=== PATIENT | female | born 1960 | race Caucasian/White ===

== ENCOUNTER 2018-10-25 06:33 | Inpatient (IN) | payer OTHER, SELFPAY ==
--- NOTE | 2018-10-25 12:22 | PM.HP.1 ---
History of Present Illness Date Patient Seen: 10/25/18 Time Patient Seen: 17:40 Chief complaint: R ANKLE FX Narrative: Tatum Atkins is a 58 yo F that is visiting from [place]. She had a fall while in Monday after getting up to the bathroom around 2:00 a.m. and sustained a right trimal ankle fx/dx. She denies loss of consciousness to assess she was half awake and lost her balance and fell in the bathroom in a hotel. Per report the skin was tented and threatened but not open. This was promptly reduced in the Monday ED. The patient has been indicated for surgery due to the severe, unstable and displaced fracture. Unfortunately they are from out of state and have very limited local resources so they have been indicated for inpatient admission for pain management and surgery. Their transported by ground across the [facility] and admitted to the orthopedic service. Patient denies any other major medical problems, denies a history of diabetes denies smoking. No prior ankle surgery. Pain is controlled. Denies numbness tingling nausea or vomiting. Is using rest and elevation and ice and pain medications. She has no known allergies to medications. Patient History Medical History Chicken pox (Acute) H/O: hysterectomy (Acute) [place] teeth extracted (Acute) Surgical History H/O arthroscopy of right knee (Acute) History of hysterectomy for benign disease (Acute) Hx of tonsillectomy (Acute) Social History household members: spouse Smoking Status: Never smoker Family & Social History Family history unavailable: Yes Social History: Lives in [place], [place], employed. Safety & Behavioral: No smoking Tobacco & Substance use: No smoking Meds Home Medications Medication Instructions Recorded Confirmed Type Ocuvite Eye Plus Multi 1 tab 10/25/18 History Allergies Allergy/AdvReac Type Severity Reaction Status Date / Time No Known Drug Allergies Allergy Verified 10/25/18 13:30 Review of Systems Review of Systems Denies fevers chills nausea or vomiting. Denies any history of heart arrhythmias. Denies shortness of breath denies abdominal pain denies numbness or tingling. Denies any urinary incontinence or retention. No history of bleeding problems. No history of blood clots or hypercoagulability Exam Narrative Exam Narrative: General: Alert oriented female in no acute distress resting in bed. HEENT: Normocephalic atraumatic Respiratory exam: Lungs clear to auscultation bilaterally Cardiac exam: Regular rate and rhythm Abdominal exam: Soft nontender Musculoskeletal exam: Moving bilateral upper extremities no known numbness tingling no tenderness to palpation. Sensation intact to light touch Left lower extremity: Full range of motion no tenderness to palpation no bruising no swelling. SCD in place Right lower extremity: In a splint. Wiggles toes. Palpable dorsalis pedis pulse. Brisk capillary refill. Full range of motion of the knee. Grossly normal alignment. Calf is soft. Thigh compartments soft. Negative logroll. Sensation grossly intact to light touch superficial deep peroneal sural and saphenous nerves. Remainder of motor exam deferred due to known acute trauma. Objective ECG Impression: Normal sinus rhythm Imaging CT scan lower extremity: My impression: Comminuted trimalleolar right ankle fracture without posterior lateral fragment. Oblique fragment distal fibula and a small medial malleolus fragment. There is intra-articular comminution at the posterior malleolar fragment site and widening of the mortise. Radiologist's impression: IMPRESSION: Trimalleolar right ankle fracture. Dictated by: Chester Chao M.D. on 10/25/2018 at 13:01 Approved by: Chester Chao M.D. on 10/25/2018 at 13:04 Right ankle x-ray: My impression: Post reduction three views of the right ankle in the splint AP mortise and lateral demonstrate trimalleolar ankle fracture with a scheduled lateral talar shift and joint space widening. Plantar calcaneal spur, talonavicular degenerative changes dorsally Separate pre reduction out side hospital images from [facility] on 10/25/2018 at 3:15 a.m. show a displaced trimalleolar ankle fracture dislocation with a lateral displacement of the talus on the tibia. And postreduction images at 11:48 p.m. show a improved alignment of the tibial talar joint status post reduction and splint placement Two view knee x-ray AP and lateral also from outside hospital demonstrate no evidence of proximal fibular fracture Radiologist's impression: IMPRESSION: Trimalleolar fractures with widening of medial joint space and uneven ankle mortise. Dictated by: Salomon Mckinley M.D. on 10/25/2018 at 16:09 Approved by: Salomon Mckinley M.D. on 10/25/2018 at 16:14 Labs Result Diagrams: 10/25/18 13:01 10/25/18 13:01 Assessment & Plan (1) Fracture dislocation of right ankle: Current visit: Yes Status: Acute Assessment & Plan narrative: 1. R ankle fracture dislocation. closed. The dislocation was well reduced at the outside ER and the patient was transported for continuing care and surgical management. she has a unstable ankle fx/dx and has been indicated for operative stabilization to reduced the risk of malunion, and post-traumatic arthritis. A CT scan has been orderd to eval the post mal fragment and plan the operative approach. The patient can anticipate 6 weeks nwb postop then progressive WB. 2. SCDs for DVT prophy. will start chem prophylaxis postop 3. pain control. PO and IV ordered 4. preop labs and EKG 5. Plan ORIF R ankle 10/26/18 6. Likely dc POD 1 if pain controlled and safe discharge situation The risks and benefits of the procedure have been discussed with the patient given the opportunity to ask questions. The risks of surgery include but are not limited to infection, malunion, nonunion, persistence of pain, damage to nerves and blood vessels, posttraumatic arthritis, symptomatic hardware, DVT, PE, cardiopulmonary complications and . The patient expressed a thorough understanding of the risks and benefits of surgery and has elected to proceed. Consent was signed in the hospital today. The patient has traveled here by airplane. Patient has been advised that flying after surgery does have risks and was advised as long as she can stay or would be better to reduce this risks, but if she can stay in the area at least 3-7 days of this would be beneficial for her. We will place her on Xarelto for DVT prophylaxis and due to the immobility the flight and travel will give her this for 2 weeks at that time she should be able to train be transitioned to aspirin 325 mg b.i.d. for 4 more weeks to get a total of 6 weeks of DVT prophylaxis. We also discussed mechanical prophylaxis and a calf pumps. Patient will need to assume care back in her home state. Quality VTE Deep Vein Thrombosis/Pulmonary Embolism Present on Admission: No
--- NOTE | 2018-10-25 12:32 | DI.CT.S_ITS ---
PROCEDURE: CT LE RT WO CON INDICATIONS: Right ankle fracture TECHNIQUE: Noncontrast 1-1.5 mm axial sections acquired from above the tibiotalar joint to the bottom of the calcaneus, with coronal and sagittal reformats. COMPARISON: [facility], CR, XR ANKLE RT MIN 3V, 10/25/2018, 12:28. Outside Facility, RG, XR ANKLE 2V RIGHT, 10/25/2018, 3:48. Outside Facility, RG, XR ANKLE 3V RIGHT, 10/25/2018, 3:15. Outside Facility, RG, XR TIB/FIB 2V RIGHT, 10/25/2018, 3:15. FINDINGS: Image quality: Diagnostic. Bones: There is a trimalleolar right ankle fracture. No oblique oriented fracture along the distal fibular diametaphysis is identified that extends into the distal tibiofibular syndesmosis. Widening of the syndesmosis is evidenced by approximately 7 mm. Lateral subluxation of the talus and lateral malleolar fracture fragment is present by approximately 4 mm. Widening of the medial clear space is present. There is a transverse fracture evident that extends through the medial malleolus with small fracture fragments evident within the medial clear space. There is a vertically oriented fracture evident involving the posterior aspect of the distal tibia that extends into the joint space. Posterior subluxation at the joint line is evident involving this fragment by up to approximately 9 mm. No definite additional acute fractures are identified. A bone island is seen within the neck of the talus. No suspicious osseous lesions are evident. Moderate degenerative changes are present involving the talonavicular joint. There is an os trigonum and os peroneum. There is a large plantar calcaneal spur. Small Achilles spur is present. Soft tissues: Prominent soft tissue swelling about the ankle is present. There is likely a small ankle effusion. Please note that the ligaments, tendons, and cartilaginous structures of the ankle are not adequately evaluated on CT. No gross abnormalities are evident. IMPRESSION: Trimalleolar right ankle fracture. Dictated by: Chester Chao M.D. on 10/25/2018 at 13:01 Approved by: Chester Chao M.D. on 10/25/2018 at 13:04
[2018-10-25 12:50] VITALS: BP 156/93; PULSE 88; RESP 16; TEMP 36.4; O2SAT 98
--- NOTE | 2018-10-25 13:00 | DI.RAD.S_ITS ---
PROCEDURE: XR ANKLE RT MIN 3V INDICATIONS: ankle fracture TECHNIQUE: 3 views of the ankle were acquired. COMPARISON: [facility], CT, CT LE RT WO CON, 10/25/2018, 12:27. Outside Facility, RG, XR TIB/FIB 2V RIGHT, 10/25/2018, 3:15. Outside Facility, RG, XR ANKLE 3V RIGHT, 10/25/2018, 3:15. Outside Facility, RG, XR ANKLE 2V RIGHT, 10/25/2018, 3:48. FINDINGS: Bones: There is closed reduction of trimalleolar fractures. Ankle mortise is uneven with widening of the medial joint space. No suspicious bony lesions. Calcaneal spurring. Soft tissues: No tibiotalar joint effusion. Achilles tendon appears normal. IMPRESSION: Trimalleolar fractures with widening of medial joint space and uneven ankle mortise. Dictated by: Salomon Mckinley M.D. on 10/25/2018 at 16:09 Approved by: Salomon Mckinley M.D. on 10/25/2018 at 16:14
[2018-10-25 13:13] LABS: Add Manual Diff / Slide Review NO; Basophils Absolute Auto 100 /uL (0-100); Basophils Percent Auto 0.7 % (0-2); Eosinophils Absolute Auto 0 /uL (0-450); Eosinophils Percent Auto 0.3 % (2-4); Hematocrit 41.9 % (36-46); Hemoglobin 14.1 g/dL (12.0-16.0); Lymphocytes Absolute Auto 1100 /uL (1100-4500); Lymphocytes Percent Auto 13.7 % (25-40); Mean Corpuscular HGB Conc 33.6 % (30-36); Mean Corpuscular Hemoglobin 33.3 PG (26-34); Mean Corpuscular Volume 99.1 fL (80-100); Monocytes Absolute Auto 600 /uL (0-900); Neutrophils Absolute Auto 6000 /uL (1500-7000); Neutrophils Percent Auto 77.3 % (50-75); Platelet Count 198 X10^3/uL (150-400); Red Blood Cell Count 4.23 X10^6/uL (4.0-5.2); Red Cell Distribution Width 13.8 % (11.6-14.8); White Blood Cell Count 7.7 X10^3/uL (4.5-11.0)
[2018-10-25 13:32] LABS: BUN Creatinine Ratio 17.1 (6-22); Blood Urea Nitrogen 12 mg/dL (7-17); Carbon Dioxide 26 mmol/L (22-32); Chloride 109 mmol/L (98-107); Estimated Glomerular Filt Rate > 60.0 mL/min (>60); Glucose 101 mg/dL (80-110); HEMOLYSIS < 15 (0-50); Potassium 4.3 mmol/L (3.4-5.1); Sodium 144 mmol/L (137-145)
[2018-10-25] MEDS: LACTATED RINGERS 1,000 ML 75 ML IV (13:59)
[2018-10-25] MEDS: ACETAMINOPHEN 325 MG TABLET 975 MG PO ×2 (14:01→20:40)
--- NOTE | 2018-10-25 14:28 | CM.DANOTE ---
DCP: Case received, EMR reviewed and met with patient. Introduced self and role. Information regarding baseline history received from patient. DCP template assessment completed with current information available. Patient is a 58 year old female who admitted today to the care of the orthopedic team. PCP: Dr. Anderson, in [place], [place]. Payer: confirmed: [employer], [facility]. Patient came to hospital for surgical procedure. She has diagnosis of a fractured right ankle. Patient is vacationing here with her , Tiago, from [place]. They were staying at a hotel on Monday, and she fell during the night in her room, and ended up fracturing her ankle. She was seen at [facility] in Monday, and had x-rays done which confirmed fracture. She is scheduled to have surgery tomorrow. Patient was brought over here by cabulence Met with patient in her room. Pleasant Alert and oriented. She was getting her IV hooked up, right ankle [place] wrapped. Asked her about insurance information, and she gave this clinical case manager her card to copy. Confirmed that her spouse is Tiago. 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 Stated that she and her have been vacationing here from [place]. P: DCP to continue to follow. She will be having her surgery tomorrow. Consult with physical therapy as well, as well as progress and needs. Cheryl Morales RN/Customer Support Manager
--- NOTE | 2018-10-25 15:15 | PC.NURSE ---
Admit: Admit to room 210 58 y/o f s/p rt ankle fx, did get CT and x-ray prior to coming into room. Rt lower leg is splinted and wrapped, doesn't like anything on it (blankets) and it is elevated. Pt is vacationing from [place] and has been making flight arrangements. See by management planner as she may have equipment or other needs prior to transfer. Pt understands her surgery is tomorrow and may have limited or non weight bearing status. Discussed use of walker and pivot transfers. IV fluids initiated. Pt understands she will be npo after midnight. Has received 1 dose of tylenol for pain, pain has been minimal so far. Highest level has been 4/10. Cont w/poc.
[2018-10-25 16:00] VITALS: BP 132/76; PULSE 84; RESP 16; TEMP 36.8; O2SAT 96
[2018-10-25] MEDS: DOCUSATE 100 MG CAPSULE PO (20:40)
[2018-10-25 21:00] VITALS: BP 152/92; PULSE 72; RESP 16; TEMP 36.5; O2SAT 96
[2018-10-26] VITALS (15 sets, daily range): BP systolic 122–156; BP diastolic 50–106; PULSE 74–94; RESP 10–16; TEMP 36.2–37.2; O2SAT 95–100
--- NOTE | 2018-10-26 | DI.RAD.S_ITS ---
PROCEDURE: XR ANKLE RT MIN 3V INDICATIONS: LEFT ANKLE FRACTURE REPAIR TECHNIQUE: AP, oblique, and lateral intraoperative fluoroscopy views of the ankle were acquired. COMPARISON: [facility], , XR ANKLE RT MIN 3V, 10/25/2018, 12:28. FINDINGS: Intraoperative fluoroscopy documents placement of internal fixation plates and transverse screws within the distal right tibia and fibula, resulting in improved alignment of the previously identified right distal tibial and fibular fractures. IMPRESSION: Intraoperative fluoroscopy documenting internal fixation of previously identified right distal fibular and tibial fractures, resulting in improved alignment of the fracture fragments. Please see operative report for further details. Dictated by: Godfrey Fairchild M.D. on 10/26/2018 at 23:50 Approved by: Godfrey Fairchild M.D. on 10/27/2018 at 0:18
[2018-10-26] MEDS: LACTATED RINGERS 1,000 ML 75 ML IV ×2 (01:15→12:54)
--- NOTE | 2018-10-26 08:51 | PC.NURSE ---
Addendum entered by June Shelby R.N. 10/26/18 10:33: PIV S/L'd at 1025, Pt left unit via bed at 1030, pt's Tiago at her side and who was given pt's cell phone to hold onto while in surgery. Original Note: Day Shift- Pt A&OX4, able to make her needs known using call light. High fall risk precautions in place, pt appropriate. RLE in splint, C/O numbness to calf, able to wiggle toes, cap refil < 2 seconds. Elevated on pillows. Pt denies any pain to RLE. Does C/O chronic back to left side back along spine. Warm blanket placed to area, pt states she usually goes to her chiropractor when this persists. IVF infusing well to Right AC PIV. Pt NPO since midnight. Awaiting surgery. pt requested for case resolution specialist to talk with her/ regarding having supportive equipment upon discharge, wheelchair, walker, crutches. Plan to fly back home to [place] next week.
--- NOTE | 2018-10-26 09:14 | PT.IPTN ---
Current Diagnoses Other fracture of right lower leg, initial encounter for closed fracture (10/25/18) Surgery Performed Operation Date: 10/26/18 11:15 <No data on this case meets the specified criteria> Physical Therapy Treatment Note M3 PT-IP Subjective Start: 10/26/18 09:12 Freq: NEEDED Status: Active Protocol: Document 10/26/18 09:13 AB (Rec: 10/26/18 09:14 AB [id number]) Subjective Physical Therapy Visit Type Notes PT eval on hold until ater surgery. Pt will have surgery 1115 today. will f/u.
[2018-10-26] MEDS: LACTATED RINGERS 1,000 ML 42 ML IV (10:55)
[2018-10-26] MEDS: MIDAZOLAM 2 MG/2 ML VIAL IV (11:10)
--- NOTE | 2018-10-26 11:10 | PM.PREOP ---
Pre-operative Note Interval Note History & Physical reviewed/Exam performed by Physician: Yes Changes to H&P: No
[2018-10-26] MEDS: fentaNYL 100 MCG/2 ML INJ 50 MCG IV (11:15)
--- NOTE | 2018-10-26 11:31 | SUR.HOLD ---
Block start time [1120] . Monitoring initiated and maintained throughout procedure. Oxygen and medications given per anesthesiologist instructions. Patient remained stable throughout procedure, no adverse reactions noted. Block end time [1128].
[2018-10-26] MEDS: CEFAZOLIN 2 GM/100 ML FROZ.PIGGY IV ×2 (11:53→20:40)
--- NOTE | 2018-10-26 11:55 | PM.OP.1 ---
Operative Date/Time/Diagnoses Date of procedure: 10/26/18 Pre-op diagnosis: Right trimalleolar ankle fracture dislocation 8 right trimalleolar ankle fracture dislocation Post-op diagnosis: same Procedure & Clinicians Procedure: 1. Open reduction internal fixation right trimalleolar ankle fracture dislocation with fixation of the posterior malleolus CPT code 53542 Same procedure as scheduled: Yes Indications: The patient is a 58-year-old female visiting from out of [facility]. She had a fall while getting up to the bathroom in the middle of the night on 10/25/2018. She sustained a closed trimalleolar ankle fracture dislocation. She was seen in the emergency room on [facility] where her fracture dislocation was reduced and she was splinted. The patient was indicated for surgery for her unstable fracture with intra-articular involvement and persistent displacement. There are no surgical facilities [place] the [place] therefore she was transferred to [facility] in [place], [place] for continued treatment. The risks and benefits of the procedure have been discussed with the patient has been given the opportunity to ask questions. The risks of surgery include but are not limited to infection, malunion, nonunion, persistence of pain, damage to nerves and blood vessels, posttraumatic arthritis, symptomatic hardware, need for additional procedures, DVT, PE, cardiopulmonary complications and . The patient expressed a thorough understanding of the risks and benefits of surgery and has elected to proceed. Consent was signed in the hospital. Surgeon: Sabina Martin Senior Quality Analyst: Nolvia Huddleston Anesthesia Type: General, Peripheral nerve block and Local Operative Notes Findings: A posterior lateral incision was made. An unstable distal fibula fracture was encountered this is oblique extending anteriorly from the syndesmosis to proximal posterior. And there was comminution at the posterior spike. This was stabilized with a 6 hole Arthrex 1/3 tubular plate. The lateral based posterior malleolus fracture fragment was exposed. This extended medially with comminution. This was open booked and the known free fragments at the joint were identified and removed. This was then reduced and stabilized with 2x 4.0 mm cannulated screws and washers. Medial incision was made over the medial malleolus fracture. This was a very small distal fragment. Arthrotomy was made to inspect the joint and another small intra-articular fragment was removed. The joint was irrigated and the medial malleolus fracture reduced under direct visualization. This was a very small fragment so a hook plate from the Arthrex set was selected this was impacted and an additional 4.0 mm cannulated screw was placed. Closure Type: primary Specimen(s): none sent Prosthetic devices, grafts, tissues, transplants, or devices: Arthrex 1/3 tubular plate 6 hole Arthrex medial hook plate Arthrex 4.0 cannulated screws and washers Applied: other (Splint) Estimated Blood Loss (mL): 20 Blood products transfused: none Tourniquet time (min): 117 Procedure in detail: The patient was seen in the preoperative area the site of surgery was marked and informed consent confirmed. Final questions were answered. Patient was then assessed by the anesthesia team and a postoperative nerve block for postoperative pain control was placed. The patient was then brought to the operating room by the anesthesia team. General anesthesia was administered and the patient was positioned into the lateral position on the beanbag. All bony prominences were well padded. An axillary roll was placed. Well-padded thigh tourniquet was placed. An SCD was on the contralateral lower extremity. Patient's operative extremity was prepped and draped in the standard sterile fashion. A 3 step prep was used on the lower extremity. A formal time-out procedure was performed confirming the patient side and site of surgery and administration of appropriate preoperative antibiotics. All were in agreement. Implants were available in the room. An Esmarch bandage utilized to exsanguinate the limb and the tourniquet was raised on the thigh to 250 mm of mercury and stayed there for approximately 117 minutes. A lateral incision was made off the back of the fibula in between the fibula and the Achilles tendon over the peroneal. Dissection was carried through the skin and subcutaneous tissue. Peroneal sheath was opened the peroneal tendons were retracted posteriorly to expose the fibula. The fibular fracture was exposed and cleaned of debris. The incision was extended slightly curved anteriorly to allow exposure over the anterior fibula at the syndesmosis and exposure of the incisura. There was a small comminuted fragment at the anterior fibula where the fracture line entered the level of the joint. The small amount of comminution was removed and the joint inspected and irrigated. This fracture was provisionally reduced restoring length rotation and alignment. This was reduced with a clamp and a K-wire. Attention was then turned to the posterior malleolus fracture. The peroneal tendons were then retracted anteriorly and the deep fascia was entered. The FHL was swept off the posterior fibula and across the tibia. A Hohmann retractor was read used to retract this medially protecting the neurovascular bundle. The lateral posterior malleolus fracture was exposed and this was open booked on the medial side taking care to protect the PI TF L attachment laterally. There was known intra-articular comminution that was visualized on the CT scan. The fracture was also noted to have more comminution at the medial edges. This was open booked and the joint was inspected and irrigated. There was 1 main osteochondral fragment that was loose and removed. There were several other small fragments that were also removed with irrigation. Once this was completed the posterior malleolus fracture was reduced and provisionally pinned in place with a K-wire. A 2nd K-wire was then placed for rotational control. Following adequate reduction this was checked on multiple images on intraoperative fluoroscopy. Trajectory of the wires was determined appropriate without intra-articular penetration. Next the wires were measured and then overdrilled for 4 0 cannulated screws from the Arthrex set. And 2 screws were selected with washers. These were placed in a posterior to anterior fashion with appropriate positioning confirmed on fluoroscopy. Next attention was returned to the fibula. A 6 hole Arthrex 1/3 tubular plate was positioned in a antiglide fashion along the posterior lateral border of the fibula. Care was taken to stop this well clear of the peroneal groove. This was held in place with 3 5 cortical screws proximally and 3 5 locking screws distally to reduce prominence. A interfragmentary lag screw through the plate was attempted but this achieved poor purchase and was exchanged for a locking screw. Next attention was turned to the medial side. The beanbag was released and the patient was carefully rotated back into a more supine position to allow for additional external rotation. A standard medial approach to the medial malleolus was made. The periosteum was reflected at the fracture site the joint was again exposed irrigated and a small additional loose fragment was removed. The fracture was then reduced with the aid of a dental pick and pinned in place with multiple K-wires. Due to the small size of the fragment a medial hook plate was selected. The tines were positioned on either side of the K-wire and impacted. A 4.0 mm cannulated screw was then advanced into the distal groove of the plate further compressing the fracture. The plate was then secured proximally with 23.5 cortical screws. Excellent reduction was confirmed on multiple fluoroscopic images. Attention was then turned to the syndesmosis. The syndesmosis was stressed under direct visualization as well as external rotation under fluoroscopy. There was no abnormal motion or joint widening confirming the stability confirmed by fixation of the posterior malleolus. Final multiple plane fluoroscopic images were obtained AP, mortise, lateral. The wounds were irrigated. Were quite satisfied with result clinically and radiographically. The tourniquet was released and hemostasis was achieved. A deep tissue was closed with 2 O Vicryl and 3 O Vicryl suture. Subcutaneous tissues were closed with 4 0 Monocryl and the skin with 3 O nylon suture. A sterile bulky dressing and splint were applied with Xeroform, gauze, Webril, bulky Cooper dressing and a U splint. Of no additional 20 cc of local anesthetic 0.25% Marcaine with epi was injected medially for the saphenous distribution as this was not covered by the block. The patient was then woken from anesthesia and taken to the recovery room in good condition. There no immediate complications from this procedure. Complications: none Condition: stable Disposition: PACU Plan for aftercare: The patient will be nonweightbearing on her affected lower extremity. She will need a follow-up in 2-3 weeks for suture removal. At this time she can be transitioned to a Cam boot. She will continue to be nonweightbearing but will start early range of motion but coming out of the boot several times a day. She will continue to be nonweightbearing for approximately 6 weeks postoperatively at which time x-rays and progressive weight-bearing will begin. Patient will then start progressive weight-bearing at 6 weeks with 25% body weight and increase to full weight-bearing over 4 weeks. Due to her travel plans she will take Lovenox while in the hospital and have a prescription for Xarelto to take for 2 weeks postoperatively. At that point she can transition to 325 mg of aspirin b.i.d. for the next 4 weeks for total of 6 weeks of blood clot prophylaxis.
[2018-10-26] MEDS: BUPIVACAINE 0.25% W/ EPI 30 ML VIAL INJ (12:49)
--- NOTE | 2018-10-26 14:03 | CM.DPC ---
DCP: continued: case received and spoke with ZAHEER Watkins. She confirmed that pt was still in surgery and was unclear when she would be arriving back to floor/210. Pt already has PT ordered and will see pt later today or tomorrow. Would like to have OT work with pt also if ortho team will approve the order as expect this will be helpful to pt and her after d/c and for DME recommendations. Per Dr. Martin's H&P pt has been advised to stay in the area at least 3-7 days post op before flying back to [place]. P: will check in tomorrow and follow to assist with d/c issues and options accordingly. Pt will need to be medically stable, have worked with therapy and have access to needed DME before a safe and appropriate d/c plan is in place.
[2018-10-26] MEDS: ACETAMINOPHEN 325 MG TABLET 975 MG PO ×2 (16:26→20:42)
--- NOTE | 2018-10-26 16:27 | SUR.PHASEI ---
1521 late entry, to pacu w/oral airway in place. Resp even and regular. Skin warm and dry. HOB elevated, RLE elevated, ice pack placed behind the knee. 1525 late entry Oral airway DC'd. Pt. denies pain, nausea. Ice chips given.
--- NOTE | 2018-10-26 16:29 | SUR.PHASEI ---
1608 awake, oriented. RLE unchanged from arrival. Tolerated PO intake well. Voices concern over worrying, planned trips, flight home and other concerns as they are on vacation from [place]. VSS, continues to deny RLE pain. Pt. told to inform RN when she begins to have pain. Taken to room 210. Bed down and locked, Call light within reach, SCD's on, Report previously phoned to floor (including in and out cath results). VSS, pain unchanged. Resp even and regular, skin warm and dry. Spouse arrived in room.
--- NOTE | 2018-10-26 16:46 | PC.NURSE ---
Addendum entered by Shirlene Solano R.N. 10/26/18 22:01: Up to commode with assistance. Non-weight bearing observed to RLE. Large void. Pt reports full sensation to RLE. States pain increasing upon return to bed with RLE elevated on pillows. Oxycodone administered and educated pt on choices for analgesia. Ice x 2 to right ankle. Encouraged to call for needs. Original Note: Pt to room 210 from PACU wide awake, conversant. Denies RLE pain, but c/o chronic back pain 07/08. Given scheduled tylenol and pt declines offer for narcotics. Room air 99%. RLE elevated on pillow x 3. Refuses ice pack. Warm exposed toes to right foot. Pt can barely wiggle toes. Brisk capillary refill. Rick wrap dry and intact to RLE. SCD in place to left LE. Denies nausea. Bowel tones present. Given sips and chips per request. , Tiago, is at bedside. Oriented to call light and encouraged to call for needs.
[2018-10-26] MEDS: DOCUSATE 100 MG CAPSULE PO (20:41)
[2018-10-26] MEDS: OXYCODONE IR 5 MG TABLET PO (21:11)
[2018-10-26] MEDS: OXYCODONE IR 5 MG TABLET 10 MG PO (22:46)
[2018-10-27 00:40] VITALS: BP 156/94; PULSE 88; RESP 17; TEMP 37.2; O2SAT 96
[2018-10-27] MEDS: CEFAZOLIN 2 GM/100 ML FROZ.PIGGY IV (05:12)
[2018-10-27 06:00] VITALS: BP 156/89; PULSE 93; RESP 16; TEMP 37.4; O2SAT 97
--- NOTE | 2018-10-27 06:19 | PM.PNPO.1 ---
Subjective Date Patient Seen: 10/27/18 Time Patient Seen: 06:19 Interval history: Postop day 1 open reduction internal fixation right trimalleolar ankle fracture with fixation posterior lip Patient is doing well this morning the block wore off about 9 PM. She has had a few oxycodone pills and seemed to be working quite well. She rates her pain at less than a 2.5 right now on her last pain medication was almost 3 hours ago. She has been up to the bathroom. She does have some mild drainage at the back of her splint. Denies nausea or vomiting. Does have some baseline back pain that is irritated by lying in bed and is using warm towel for this. They are planning on likely discharged today and getting down to [place]. The planned likely flight on Monday back to [place]. As they do have a orthopedic surgeon in mind in [place] and they have seen before for other injuries. I have provided my card if they have any issues with follow-up. Exam Vital Signs (past 8 hours): - 10/27/18 00:40 Temperature 99.0 F Pulse Rate 88 Respiratory Rate 17 Blood Pressure 156/94 H Pulse Oximetry 96 Oxygen Delivery Method Room Air Oxygen Flow Rate 1 Narrative Exam Narrative: General exam: Alert oriented no acute distress HEENT exam: Normocephalic atraumatic Respiratory exam: Unlabored on room air CV exam: Regular rate and rhythm Abdomen: Nontender Extremities: Moving upper extremities without issues no tenderness or pain. Left lower extremity atraumatic with SCD in place with all toes. Dorsiflexion plantar flexion intact. Right lower extremity with splint in place elevated above heart level. Wiggles toes. Brisk capillary refill. Minimal drainage around the heel of the splint this is overwrapped with Rick wrap today. Objective Labs Result Diagrams: 10/25/18 13:01 10/25/18 13:01 Assessment & Plan Post-op Postoperative Procedures Operation Date: 10/26/18 11:15 Actual Procedures Side Surgeon p ORIF Ankle Fracture Right Sabina Martin MD Postop day 1 status post open reduction internal fixation right trimalleolar ankle fracture with fixation posterior lip. Patient is doing well her pain is controlled. Plan to work with Physical therapy this morning and long as pain control plan discharge home later today. Patient will have prescriptions for pain medication as oxycodone on the chart. Patient also has a prescription for Xarelto 10 mg daily for 14 days on the chart. She also has a prescription for Tylenol on the chart. We will avoid anti-inflammatories while on Xarelto. Patient will be nonweightbearing on the right lower extremity she may touch toe down for balance. Rest and elevation will help with swelling and pain control. Splint may be over wrapped as needed for any drainage While in the hospital patient using Lovenox and SCDs for DVT prophylaxis will need for discharge prescription for crutches, knee scooter, Colace for stool softener will need copies of medical records and imaging Quality VTE Deep Vein Thrombosis/Pulmonary Embolism Present on Admission: No
--- NOTE | 2018-10-27 06:32 | PC.NURSE ---
Pt VSS. Lung sounds clear. Pain 3-4/10. Medicated once on this shift 5mg oxycodone. Pt has foot elevated and SCD's on left side. Foot is weeping serosanguinous fluid.
[2018-10-27] MEDS: DOCUSATE 100 MG CAPSULE PO (08:11)
[2018-10-27] MEDS: ACETAMINOPHEN 325 MG TABLET 975 MG PO ×2 (08:11→14:12)
[2018-10-27] MEDS: ENOXAPARIN 40 MG/0.4 ML SYRINGE SUBCUT (08:11)
[2018-10-27] MEDS: OXYCODONE IR 5 MG TABLET PO ×2 (08:12→12:13)
[2018-10-27 08:25] VITALS: BP 155/84; PULSE 83; RESP 18; TEMP 36.7; O2SAT 98
--- NOTE | 2018-10-27 09:05 | CM.DPC ---
Addendum entered by Michelle Sesay LPN 10/27/18 14:11: PT was able to work with pt and her spouse. FWW has now been determined to be better than the crutches for pt and one is issued from the PT consignment closet. Note that Mariangel is recommending HH services once pt gets home to [place]. This will need to be ordered by her PCP once she gets back home. Her will be assisting 21/11. P: remains [place] today and [place] on MondayOctober 29. Spouse is now taking items out to the car. Addendum entered by Michelle Sesay LPN 10/27/18 09:21: Met with pt and her . Introduced self and role. Both confirm the plan for a d/c later today to [place]. They plan to stay at a hotel for 2 nights and then fly out to [place] Monday. 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 Ortho [facility] [place] has advised pt to use crutches and she has given pt a script for a type of assistive device/ alternative to a scooter that pt is familiar with and knows how to obtain in [place]. Pt will use the wheelchairs at the airport. Padmini has ok'd OT to work with pt today. Thus far pt says she has been able to get to the [facility] with nursing assist. Pt and her say they do feel confident in their ability to manage the trip back home. will be picking up medications and an inflatable pillow at local pharmacy prior to pt leaving today. A d/c order is now in....pt will go later today if all is in place per above. Original Note: DCP: continued: EMR reviewed including Dr. Martin's note of this morning. Dr. Martin anticipates that pt will d/c today and will go to [place] with her . They will fly out to [place] on MondayOctober 29. PT has not yet been able to work with pt. Spoke with PT Mariangel just now and she will be seeing pt this morning. She will advise on needed DME etc and will follow up prn after her evaluation.
[2018-10-27 09:14] VITALS: O2SAT 97
--- NOTE | 2018-10-27 09:35 | PC.NURSE ---
Addendum entered by June Shelby R.N. 10/27/18 14:49: Discharge Summary packet reviewed with pt and her Tiago at bedside. All questions answered. States has all belongings. Pain controlled with scheduled Tylenol and PRN Oxycodone given last at 1213. pain reported as 2-3.5/10 pressure and throbbing to right ankle. CMS+ Pt left unit via wheelchair in no distress with and [employer] escort. Pt plans to stay 2 night at [facility] near [facility] [place] then Fly back home to [place] Monday morning. Original Note: Day Shift- Pt's prrescriptions for Acetaminophen, Oxycodone, and Xarelto given to pt's with pt's permission to be filled at [facility] or [facility] in anticipation of discharge later today. Pt rates right ankle pressure, throbbing 3/10, Oxycodone prn given at 0810 with good effect. Right LE plint and orville wrap RANDY, Dr. Martin in to see pt this AM and reinforced reported posterior ankle drainage with additional orville wrap that is CDI. CMS+, pt able to wiggle all toes, no edema noted at this time. IVF S/L'd at 0750, pt drinking well and encouraged to drink water. Waiting for PT/OT assessment prior to discharge.
--- NOTE | 2018-10-27 09:40 | PT.IIE ---
Current Diagnoses Other fracture of right lower leg, initial encounter for closed fracture (10/25/18) Surgery Performed Operation Date: 10/26/18 11:15 Actual Procedures p ORIF Ankle Fracture(Right) - Sabina Martin MD Surgical History (Last Reviewed 10/26/18 @ 06:51 by Sabina Martin MD) H/O arthroscopy of right knee (Acute) History of hysterectomy for benign disease (Acute) Hx of tonsillectomy (Acute) Medical History (Last Reviewed 10/26/18 @ 06:51 by Sabina Martin MD) Chicken pox (Acute) H/O: hysterectomy (Acute) [place] teeth extracted (Acute) Physical Therapy Inpatient Evaluation/Re-Eval M1 PT/OT-IP Prior Functional Status Start: 10/26/18 09:12 Freq: NEEDED Status: Active Protocol: Document 10/27/18 09:40 AB (Rec: 10/27/18 12:29 AB [id number]) Medical Review Prior Functional Status Medical History Reviewed Yes Communication able to make needs known Mobility and Gait pt stated that she is independent with all mobilities and ambulation without AD Prior Functional Level (Other details) Pt lives in [place]. pt was on vacation and fell; sustained a R ankle fracture and underwent ORIF. pt plans to go to [place] after d/c and stay at a hotel until her flight back to [place] this monday. Social History Household Members spouse Living Arrangements House Number of Floors (Floors) One Floor Number of Stairs To Enter/Railing? 1 ~ 2 in step to enter Home Environment High Toilet Walk in Shower Home Equipment Hand Held Shower Grab Bars In Shower Additional Social History Comment pt and spouse works from home pt plans to sleep on her power recliner M2 PT-IP Current Condition Start: 10/26/18 09:12 Freq: NEEDED Status: Active Protocol: Document 10/27/18 09:40 AB (Rec: 10/27/18 12:29 AB [id number]) Physical Therapy Current Condition Current Condition Evaluation Date 10/27/18 Treatment Diagnosis R trimalleolar ankle fx/ dislocation s/p ORIF; difficulty in walking Onset Date 10/25/18 Precautions Brace has R soft cast on Weight Bearing Status Weight Bearing Status Non-Weight Bearing Allowed Weight Bearing Amount (enter % RLE NWB or #) (%) M3 PT-IP Subjective Start: 10/26/18 09:12 Freq: NEEDED Status: Active Protocol: Document 10/27/18 09:40 AB (Rec: 10/27/18 12:29 AB [id number]) Subjective Physical Therapy Visit Type Type Initial Evaluation Visit Start Time 09:40 Visit Stop Time 10:46 Total Visit Minutes 66 Number of CERAMICS TEACHER Visits 0 Physical Therapy Visit Comments Patient Comments pt agreeable to do PT Patient Goals to go home Therapy Pain Assessment Pain When Pain Assessed At Rest Pain Present Pain Present Pain Reported Location Right Ankle Intensity 2 Scale Used Numeric (1 - 10) Pain Management Techniques Re-positioning Timing of Activity with Medications M4 PT-IP Mobility and Gait Start: 10/26/18 09:12 Freq: NEEDED Status: Active Protocol: Document 10/27/18 09:40 AB (Rec: 10/27/18 12:29 AB [id number]) PT-Bed Mobility Assessment Supine to Sit Supine to Sit Standby Assistance Scooting Scooting to Edge of Bed Standby Assistance PT-Transfer Assessment Sit to and From Stand Sit to and from Stand Standby Assistance Equipment Transfer Assistive Device Gait Belt Front Wheeled Walker Orthotic/Prosthetic Devices or Brace: Yes Transfers Transfer Destination Chair Transfer Technique Stand Step Pivot Transfer Ability Level of Assist Contact Guard Assistance 1 Person Assistance Use of Upper Extremities Gait Assessment Gait Gait Assistance Required: Standby Assistance Contact Guard Assist Distance (Feet) 60 Able to Maintain Weight Bearing Status Yes During Gait Assistive Devices Assistive Device Gait Belt Front Wheeled Walker Axillary Crutches Orthotic/Prosthetic Devices or Brace: Yes Gait Deviations General Gait Pattern Decreased Stride Length Decreased Feet Clearance Factors Limiting Gait Function Factors Limiting Gait Function Decreased Activity Tolerance Decreased Strength Limited Range of Motion Pain Poor Balance Comments Gait Comments Assessed ambulation using FWW in room and completed ~ 20 ft requiring CGA. educated pt on how to use axillary crutches. pt completed ambulation using bilateral axillary crutches CGA to min A and cues. pt present with usteady gait. pt is more stable and safer with use of FWW compared to crutches and pt also stated that she feels safer with a fWW. ambulated in the hallway using FWW SBA ~ 60 ft. pt was able to maintain NWB on RLE Stair Climbing Assessment Comments Stair Climbing Comments Attempted up/down 6 in step but pt unable. stated that they only have a 2 in step to enter. educated pt on how to get up/down step and pt understood. spouse also present and will assist pt. PT-Balance Assessment Sitting Balance and Reactions Static Sitting Balance Ability Good Dynamic Sitting Balance Ability Good Standing Balance and Reactions Static Standing Balance Ability Fair Dynamic Standing Balance Ability Fair Device Used FWW M5 PT-IP Objective Assessments Start: 10/26/18 09:12 Freq: NEEDED Status: Active Protocol: Document 10/27/18 09:40 AB (Rec: 10/27/18 12:29 AB [id number]) Orientation Orientation/Cognition Level of Alertness Alert Orientation Name Age Birthday Month Date Year Day of Week Place Situation Language Function Ability No Deficits Noted Safety Awareness Understands Safety Issues Memory Description No Deficits Noted Gross Range of Motion Lower Extremity ROM Assessment Right Impaired Impairments R ankle on cast Strength Lower Extremity Strength Assessment Left Impaired Knee 4-/5 Ankle on cast Coordination Assessment Gross Coordination Gross Coordination WNL Sensation Assessment Sensation Gross Sensation WNL Muscle Tone Muscle Tone WNL Yes M6 PT-IP Treatment Start: 10/26/18 09:12 Freq: NEEDED Status: Active Protocol: Document 10/27/18 09:40 AB (Rec: 10/27/18 12:29 AB [id number]) Physical Therapy Treatment Exercises Exercises Seated Knee Flexion/Extension Education Education Provided Precautions Weight Bearing Status Safety Equipment Issued Equipment Type and Company [facility] 10/27/18: Ciplex M7 PT-IP Assessment and Plan Start: 10/26/18 09:12 Freq: NEEDED Status: Active Protocol: Document 10/27/18 09:40 AB (Rec: 10/27/18 12:29 AB [id number]) PT Summary Assessment and Plan Potential Rehabilitation Potential Good Status of Condition at Evaluation Stable Summary Impairments Pain ROM Strength Balance Bed Mobility Transfers Gait Activity Tolerance Assessment Summary pt sustained R ankle fracture after a fall and underwent ORIF. pt is currently NWB. Spouse will assist pt. Pt lives in [place]. Pt plans to go to [place] upon d/c and stay on a hotel until her flight back to [place] on monday. Pt stated that the hotel has a w/c that they can use and the airline/airport also has a w/c. pt has already called the hotel and the airline to arrange things they need. Recommended use of FWW and pt agreed to purchase and FWW was dispensed. also recommended a bedside commode , shower chair and w/c for pt to use at home. pt and spouse understood and agreed. Goals Bed Mobility Goal Independent Transfer Goal Independent Front Wheeled Walker Gait Goal Independent Front Wheel Walker Gait Distance 100 Other Goals up/down 1 step using FWW Days to Meet Goals 3 Frequency of Treatment Frequency Of Treatment Twice a Day Treatment Plan Physical Therapy Treatment Plan Bed Mobility Training Transfer Training Gait Training Therapeutic Exercise Balance Retraining Post Op Education Discharge Planning Hot or Cold Pack Neuromuscular Re-ed Coordination Retraining Manual Therapy Other Recommendations and Next Treatment ambulation, stair climbing Focus Recommendations To Nursing Amount of Assist Needed 1 Person Assist Discharge Recommendations PT Discharge Recommendations Home with 21/11 Assist Home Health Equipment Needed for Home Before FWW: already dispensed Discharge
[2018-10-27 11:54] VITALS: BP 141/84; PULSE 75; RESP 18; TEMP 36.5; O2SAT 100
--- NOTE | 2018-10-27 14:11 | OT.IP.EVAL ---
Current Diagnoses Other fracture of right lower leg, initial encounter for closed fracture (10/25/18) Surgery Performed Operation Date: 10/26/18 11:15 Actual Procedures p ORIF Ankle Fracture(Right) - Sabina Martin MD Past Medical History (Last Reviewed 10/26/18 @ 06:51 by Sabina Martin MD) Chicken pox (Acute) H/O: hysterectomy (Acute) [place] teeth extracted (Acute) Surgical History (Last Reviewed 10/26/18 @ 06:51 by Sabina Martin MD) H/O arthroscopy of right knee (Acute) History of hysterectomy for benign disease (Acute) Hx of tonsillectomy (Acute) Occupational Therapy Inpatient Evaluation/Re-Eval M1 PT/OT-IP Prior Functional Status Start: 10/26/18 09:12 Freq: NEEDED Status: Active Protocol: Document 10/27/18 14:02 CGR (Rec: 10/27/18 14:11 CGR [email or web address]) Medical Review Prior Functional Status Medical History Reviewed Yes Communication able to make needs known Mobility and Gait pt stated that she is independent with all mobilities and ambulation without AD Prior Functional Level (Other details) Pt lives in [place]. pt was on vacation and fell; sustained a R ankle fracture and underwent ORIF. pt plans to go to [place] after d/c and stay at a hotel until her flight back to [place] this monday. Social History Household Members spouse Living Arrangements House Number of Floors (Floors) One Floor Number of Stairs To Enter/Railing? 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 Additional Social History Comment pt and spouse works from home pt plans to sleep on her power recliner M2 OT-IP Current Condition Start: 10/27/18 14:02 Freq: Status: Active Protocol: Document 10/27/18 14:02 CGR (Rec: 10/27/18 14:11 CGR [email or web address]) Occupational Therapy Current Condition Current Condition Evaluation Date 10/27/18 Treatment Diagnosis R ankle fx, s/p ORIF Weight Bearing Status Weight Bearing Status Non-Weight Bearing M3 OT- IP Subjective and Pain Start: 10/27/18 14:02 Freq: Status: Active Protocol: Document 10/27/18 14:02 CGR (Rec: 10/27/18 14:11 CGR [email or web address]) OT- Subjective Occupational Therapy Visit Type Type Initial Evaluation Visit Start Time 12:50 Visit Stop Time 13:50 Total Visit Minutes 60 Notes present throughout session. OT Pain Assessment Pain When Pain Assessed At Rest Pain Present Pain Present Pain Reported Location Right Ankle Intensity 1 Scale Used Numeric (1 - 10) M4 OT- IP ADL's Start: 10/27/18 14:02 Freq: Status: Active Protocol: Document 10/27/18 14:02 CGR (Rec: 10/27/18 14:11 CGR [email or web address]) OT ADL-Grooming General Evaluation Grooming Ability Independent Comments OT Grooming Comments seated OT ADL-Oral Care Comments Oral Care Comments Not tested OT ADL-Dressing General Eval Upper Body Dressing Ability Independent Lower Body Dressing Ability Standby Assistance Areas Needing Assistance Retrieving/Set-up of Clothing Pants/Shorts Socks Shoes Comments OT Dressing Comments Pt able to perform seated in chair with VC for donning hurt leg first. OT ADL-Toileting General Evaluation Toileting Ability Standby Assistance Devices Toileting Assistive Devices Grab Bars OT ADL-Bathing Comments OT Bathing Comments Not performed on this date but did demonstrate shower transfer with SBA following instructions for safe transfer over shower threshold. M5 OT- IP IADL's Start: 10/27/18 14:02 Freq: Status: Active Protocol: Document 10/27/18 14:02 CGR (Rec: 10/27/18 14:11 CGR [email or web address]) OT-Instrumental Activities of Daily Living Deficits IADL Deficits Identified No Deficits Home Safety Awareness Awareness of Need for Assistance at Home Good Awareness Ability to Problem Solve Emergency Able to Problem Solve Situations Medication Management Medication Management No Deficits Identified Money Management Money Management No Deficits Identified Meal Preparation Meal Preparation Caregiver Provides Assist Solutions Delivery Consultant Solutions Delivery Consultant Caregiver Provides Assist Driving Driving Caregiver Provides Assist M6 OT- IP Functional Cognition Start: 10/27/18 14:02 Freq: Status: Active Protocol: Document 10/27/18 14:02 CGR (Rec: 10/27/18 14:11 CGR [email or web address]) Cognitive Factors Limiting Selfcare Function Cognitive Ability Level of Alertness Alert Patient Orientation Name Age Birthday Month Date Year Day of Week Place Situation Attention Span Ability Capable of Focused Attention Capable of Sustained Attention Ability to Follow Commands Able to Follow Multi-Step Commands Memory Description No Deficits Noted Safety Awareness No Deficits Noted Problem Solving Ability No deficits Noted Executive Function Ability No Deficits Noted Abstract Thinking Ability No Deficits Noted OT- Vision and Hearing OT- Hearing Assessment OT- Hearing Assessment WFL OT- Vision Assessment Visual Acuity WFL Glasses For Reading Visual Attentiveness WFL Occular Pursuits WFL Visual Convergence WFL Visual Neumann WFL M7 OT- IP Mobility and Balance Start: 10/27/18 14:02 Freq: Status: Active Protocol: Document 10/27/18 14:02 CGR (Rec: 10/27/18 14:11 CGR [email or web address]) OT-Transfer Assessment Sit to and From Stand Sit to and from Stand Standby Assistance Transfers Transfer Ability Standby Assistance Technique Transfer Destination Chair Shower Stall Toilet Transfer Technique Stand Step Pivot Devices Transfer Assistive Devices Gait Belt Front Wheeled Walker Comments Mobility Comments Pt able to follow commands for safe transfer. Educated on car and airplane transfers. OT- Balance Assessment Sitting Balance and Reactions Static Sitting Balance Ability Normal Dynamic Sitting Balance Ability Normal Standing Balance and Reactions Static Standing Balance Ability Good Dynamic Standing Balance Ability Good M8 OT- IP Objective Assessments Start: 10/27/18 14:02 Freq: Status: Active Protocol: Document 10/27/18 14:02 CGR (Rec: 10/27/18 14:11 CGR [email or web address]) OT Gross Range of Motion Upper Extremity Range of Motion Assessment Within Functional Limits OT Strength Upper Extremity Strength Assessment Within Functional Limits Comments Strength Comments grossly 4 to 4+/5 OT- Coordination Assessment Upper Extremity Finger to Nose Test Within Functional Limits Finger Tapping Test Within Functional Limits OT-Muscle Tone Assessment Muscle Tone WNL Yes OT Sensation Assessment Comments Summary Comments Reports typical sensation to BUE Edema Edema Absent M9 OT- IP Assessment and Plan Start: 10/27/18 14:02 Freq: Status: Active Protocol: Document 10/27/18 14:02 CGR (Rec: 10/27/18 14:11 CGR [email or web address]) OT Summary Assessment and Plan Potential Rehabilitation Potential Excellent Analytic Complexity at Evaluation Low Summary OT Impairments Pain Range of Motion Balance Functional Mobility Grooming Dressing Toileting Bathing Toilet Transfers Shower Transfers Progress Towards Goals Safe For Discharge Assessment Summary Pt presents after fall in bathroom with R ankle fx requiring ORIF. Pt educated on safe self care transfers and performed LB dressing seated in chair with VC. All questions and concerns addressed. Pt is safe for discharge to [facility] with husbands assist. Pt to fly home to [place] on Monday. No further OT needs at this time. Frequency of Treatment Frequency Of Treatment Discharge Discharge Recommendations OT Discharge Recommendations Home with Assistance
== END 2018-10-27 14:47 | disposition home or self-care (01) | DRG 494 ==
PROVIDERS: Admitting Provider Orthopaedic Surgery Foot and Ankle Surgery; Visit Provider Orthopaedic Surgery Foot and Ankle Surgery
PROC: 0SSF04Z Reposition Right Ankle Joint with Internal Fixation Device, Open Approach (ICD-10-PCS; principal; 2018-10-26 11:15)
DX: S82.851A Displaced trimalleolar fracture of right lower leg, initial encounter for closed fracture (principal); W18.30XA Fall on same level, unspecified, initial encounter; Y92.59 Other trade areas as the place of occurrence of the external cause
CPT/HCPCS: 36415; 64415; 73610; 73700; 76000; 80048; 85025; 93005; 93010; 94760; 97116; 97161; 97165; 97530; 97535; J0690; J1100; J1650; J2250; J2405; J2704; J3010